=== PATIENT | male | born 1985 | race Caucasian/White ===

== ENCOUNTER 2017-08-21 05:04 | Emergency (ER) | payer OTHER ==
[~2017-08-21] VITALS: Ht 188 cm; Wt 99.2 kg
[2017-08-21 05:08] VITALS: BP 148/91; PULSE 83; RESP 18; TEMP 97; O2SAT 100
[2017-08-21 05:25] VITALS: BP 148/94; PULSE 83; RESP 18; TEMP 97.5; O2SAT 100
[2017-08-21] MEDS ORDERED: IBUPROFEN 800 MG TAB PO ONE (06:00)
[2017-08-21] MEDS ORDERED: DIAZ5 PO (06:00)
[2017-08-21] MEDS ORDERED: IBUP-232 PO (06:00)
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
[2017-08-21 06:24] VITALS: BP 144/83
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
== END 2017-08-21 06:44 | disposition home or self-care (01) ==
LOC: PHED 05:04
DX: S13.9XXA Sprain of joints and ligaments of unspecified parts of neck, initial encounter (principal); F17.290 Nicotine dependence, other tobacco product, uncomplicated; V47.5XXA Car driver injured in collision with fixed or stationary object in traffic accident, initial encounter
CPT/HCPCS: 72050; 99283